=== PATIENT | female | born 1990 | race Caucasian/White ===

== ENCOUNTER → 2017-09-10 17:33 | Outpatient (REF) | payer BC, SELFPAY | LOC: LAB 17:33 | PROVIDERS: Visit Provider Nurse Practitioner Obstetrics & Gynecology | DX: Z34.90 Encounter for supervision of normal pregnancy, unspecified, unspecified trimester (principal) | CPT/HCPCS: 86403 ==

== ENCOUNTER 2017-09-26 22:50 | Inpatient (IN) ==
[2017-09-27 00:42] LABS: Microscopic, Urine URINE MICROSCOPIC (MICROSCOPIC)
[2017-09-27 00:59] LABS: Basophils # 0.1 K/mm3 (0-0.2); Basophils % 0.3 % (0.1-2.0); Eosinophils # 0.2 K/mm3 (0.0-0.4); Hematocrit 36.1 % (37.0-47.0); Hemoglobin 12.4 g/dL (12.2-16.2); Lymphocytes # 3.6 K/mm3 (0.7-4.5); Lymphocytes % 16.4 K/mm3 (10-50); Mean Corpuscular HGB Conc 34.3 g/dL (31.8-35.4); Mean Corpuscular Hemoglobin 30.5 pg (27.0-31.2); Mean Corpuscular Volume 88.9 fl (81-99); Mean Platelet Volume 8.5 fl (7.4-10.4); Monocytes # 1.3 K/mm3 (0.1-1.0); Monocytes % 5.7 % (1.7-9.3); Neutrophils # 17.1 K/mm3 (1.8-7.8); Neutrophils % 76.7 % (37.0-80.0); Platelet Count 316 K/mm3 (142-424); Red Blood Count 4.06 M/mm3 (4.20-5.40); Red Cell Distribution Width 12.6 % (11.5-17.5); White Blood Count 22.3 K/mm3 (4.8-10.8)
[2017-09-27 01:01] LABS: Appearance,Urine CLEAR (Clear); Bilirubin,Urine Negative (Negative); Blood, Urine Negative (Negative); Color,Urine YELLOW (Yellow); Glucose,Urine (UA) Negative (Negative); Ketones,Urine Negative (Negative); Leukocyte Esterase,Urine Negative (Negative); Protein,Urine Negative (Negative); Specific Gravity, Urine <= 1.005 (1.005-1.030); Urobilinogen,Urine 0.2 EU/dl (0.2)
[2017-09-27 01:25] LABS: Bacteria,Urine Trace /lpf
[2017-09-27 01:28] LABS: Amphetamine/Metha Screen,Urine Negative ng/mL (<1000); Barbiturates Screen,Urine Negative ng/mL (<200); Benzodiazepines Screen,Urine Negative ng/mL (200); Cannabinoid Screen,Urine Positive ng/mL (<50); Cocaine Screen,Urine Negative ng/g (<300); Methadone Screen,Urine Negative ng/mL (<300); Opiate Screen,Urine Negative ng/mL (<300); Phencyclidine Screen,Urine Negative ng/mL (<25)
--- NOTE | 2017-09-27 04:27 | Progress Note ---
[facility] Anesthesia Checklist - Structural Data Admitted From: Home Planned Operative Procedure/s: labor epid Consent for Planned Operative Procedure(s) Verified: Yes - Airway Assessment C-Spine Mobility Assessed: Yes TMJ Mobility Assessed: Yes Dentition: Good Dentition - Neurological Assessment Level of Consciousness: Awake, Alert, Appropriate - Anesthesia Plan Anesthesia Risk discussed: Yes Anesthesia Plan: Verified ASA Class: II Anesthesia Type: Epidural [facility] Anesthesia HX I have reviewed the patient's past medical history: Yes Medical History: Reports:: Anxiety, Asthma Denies:: Depression, Migraine, Seizures Laterality Cases: Bilateral: Tonsillectomy Other Surgeries: Yes: No Previous Surgery, Sinus Surgery. No: Amputation: No Fractures: No *Family Hx:: No significant family history
[2017-09-27 04:59] LABS: Anisocytosis 1+; Eosinophils % 1 % (0-3); Lymphocytes % 15 % (10-50); Monocytes % 2 % (2-9); Neutrophils % 82 % (42-76); Total Cells Counted 100
--- NOTE | 2017-09-27 08:48 | Progress Note ---
Labor Note - Subjective: Date: 09/27/17 Time: 08:47 irregular contractions - Objective: NST:: Reactive Contractions:: every 4-5 minutes Cervical Dilation:: 6 Effacement:: 100% Station: 0 Membranes: articially ruptured - Fetus: Monitoring?: Yes monitoring type:: Internal and External Comment:: I inserted and IUPC. - Assessment: Labor progressing?: Yes Cephalopelvic disproportion?: No Patient Problems: All Active Problems (Acute) - Plan: Anesthesia for epidural?: Yes Continue to labor down?: Yes Plan for ?: No Continue to monitor?: Yes Start pushing?: No
--- NOTE | 2017-09-27 08:50 | History & Physical Report ---
OB - H&P: HPI Antepartum - History of Present Illness Chief complaint: Contractions - History of Present Criteria for establishing EDC:: LMP confirmed by 1st trimester US care: good care Ultrasounds: normal 1st trimester US, normal mid trimester US Obstetrical complications: none Medical complications: none Planning to breastfeed?: No [facility] History I have reviewed the patient's past medical history: Yes Medical History: Reports:: Anxiety, Asthma Denies:: Depression, Migraine Laterality Cases: Bilateral: Tonsillectomy Other Surgeries: Yes: No Previous Surgery, Sinus Surgery. 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 Meds Home Medications Medication Instructions Recorded Confirmed Type ferrous sulfate 325 mg (65 mg 325 mg PO DAILY tab 06/07/17 09/27/17 History iron) tablet,delayed release 1 tab PO DAILY 06/07/17 09/27/17 History vitamin,calcium,hjkleecw-aixa-ngxfn acid tablet Allergies Allergy/AdvReac Type Severity Reaction Status Date / Time Sulfa (Sulfonamide Allergy Mild I-HIVES Verified 09/26/17 08:40 Antibiotics) [SULFA (SULFONAMIDE ANTIBIOTICS)] OB - H&P: Exam - Physical Exam Vital signs: Temp Pulse Resp BP Pulse Ox 98.1 F 122 H 17 134/79 98 09/26/17 23:25 09/26/17 23:25 09/26/17 23:25 09/26/17 23:25 09/26/17 23:25 - Constitutional no acute distress OB - Results - Labs Labs: Short CBC 09/27/17 Range/Units 00:15 WBC 22.3 H* (4.8-10.8) K/mm3 Hgb 12.4 (12.2-16.2) g/dL Hct 36.1 L (37.0-47.0) % Plt Count 316 (142-424) K/mm3 Urine 09/26/17 Range/Units 23:50 Urine Color Yellow (Yellow) Urine Appearance Clear (Clear) Urine pH 6.0 (5.0-8.5) Ur Specific [place] <= 1.005 (1.005-1.030) Urine Protein Negative (Negative) Urine Glucose (UA) Negative (Negative) OB - A/P Antepartum (1) Normal delivery Current visit: Yes Status: Acute - Additional Plan Plan: expectant management (I ruptured her membranes and inserted and IUPC. Will start oxytocin.)
--- NOTE | 2017-09-27 10:55 | Progress Note ---
Labor Note - Subjective: Date: 09/27/17 Time: 10:54 regular contraction - Objective: NST:: Reactive Contractions:: every 2-3 minutes Cervical Dilation:: 9-10 Effacement:: 100% Station: +3 Membranes: articially ruptured - Fetus: Monitoring?: Yes monitoring type:: Internal and External - Assessment: Labor progressing?: Yes Cephalopelvic disproportion?: No Patient Problems: All Active Problems Normal delivery (Acute) (Acute) - Plan: Anesthesia for epidural?: Yes Continue to labor down?: Yes Plan for ?: No Continue to monitor?: Yes Start pushing?: Yes Continue pushing?: Yes
--- NOTE | 2017-09-27 12:04 | Procedure Note ---
- Delivery Note Delivery Date:: 09/27/17 Delivery Time:: 11:44 Anesthesia Type: Epidural Was labor medically induced?: No Induction method: none delivered prior to 39 weeks?: No Justification for early elective delivery:: Active Labor Gender: Male at 1 minute: 8 at 5 minutes: 9 AF:: Clear fluid LAC or MLE?: LAC Delivery Procedure:: She is a 27-year-old 1 para 0 who was benign and 6 weeks gestational age. She came in in active labor and was found to be 4 cm dilated. She was observed overnight and progressed to 6 cm. She had her membranes ruptured and under labor epidural progressed to full dilation. She began pushing was having some prolonged decelerations and as result of that I elected to place a vacuum in the direct OA position at station +4 with an empty bladder. I applied a vacuum in the normal vacuum range and had her push twice the vacuum did not help much with her dissent so I elected to Place Hackett forceps. The forceps were placed in the direct OA position with an empty bladder. The baby was station +4. The Hackett forceps were also padded. Using one long gentle pull I was able to easily deliver the head. This is followed by the anterior shoulder and the rest of the 's body atraumatically. The nasopharynx and oropharynx were bulb suctioned. The baby cried spontaneously. He was quite vigorous. We allowed the cord to continue to pulsate for 1 minute and then doubly clamped and cut the cord. The baby was then handed off to nurses who assigned Apgars of 8 at 1 minute and 9 at 5 minutes. We then obtained cord blood as well as cord pH. The pH was 7.25. Using gentle traction on the cord and countertraction on the fundus I was able to easily deliver the placenta intact. He had a normal three-vessel cord. She had a small right labial tear as well as a second-degree perineal laceration. Labial tear was repaired with a single interrupted 3-0 Vicryl Rapide suture. The perineal tear was closed first with 3-0 Vicryl suture in a running locked fashion along the vaginal mucosa and then the deep tissues of the perineum were closed with 2-0 Vicryl suture. The skin was closed with subcuticular 2-0 Vicryl suture. She has a positive blood, she is rubella immune and was group B Streptococcus negative. She plans to bottle feed. 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 Estimated blood loss was approximately 400 cc. Laceration:: vaginal (Second-degree perineal tear) Placental Delivery Description: Spontaneous
[2017-09-27 15:27] LABS: Hematocrit 33.5 % (37.0-47.0); Hemoglobin 11.2 g/dL (12.2-16.2)
[2017-09-28 06:54] LABS: Hematocrit 28.9 % (37.0-47.0)
[2017-09-28 07:24] LABS: Hemoglobin 9.8 g/dL (12.2-16.2)
--- NOTE | 2017-09-28 07:34 | Progress Note ---
Internal Medicine - PN: Subj *Date: 09/28/17 *Time: 07:34 Interval history: She continues to do very well this morning. She is eating and drinking and ambulating. She is bottlefeeding. Her lochia is normal. Exam Vital signs and Labs for Last 24 Hours: Temp Pulse Resp BP Pulse Ox 98.1 F 122 H 17 134/79 98 09/26/17 23:25 09/26/17 23:25 09/26/17 23:25 09/26/17 23:25 09/26/17 23:25 Laboratory Results - last 24 hr 09/27/17 11:50: Cord ABG pH 7.25 L 09/27/17 15:19: Hgb 11.2 L, Hct 33.5 L 09/28/17 06:44: Hgb 9.8 L D, Hct 28.9 L I & O for Last 24 hours: Intake & Output 09/25/17 09/26/17 09/27/17 09/28/17 11:59 11:59 11:59 11:59 Weight 155 lb 4 oz - Constitutional no acute distress Assessment and Plan (1) Normal delivery Current visit: Yes Status: Acute Category: Medical Code(s): O80 - Encounter for full-term uncomplicated delivery; Z37.9 - Outcome of delivery, unspecified - Assessment and plan all Dx Assessment and Plan for all problems:: She continues to do very well. We will plan to send her home tomorrow.
--- NOTE | 2017-09-29 08:44 | Discharge Summary ---
General - General Admission date: 09/27/17 Discharge date: 09/29/17 HPI HPI: She is a 27-year-old 1 now para 1 who is 39 and 6 weeks gestational age. She came in in active labor. Hospital Course Hospital Course: She was found to be in active labor and progressed from 4-6 cm overnight. She had her membranes ruptured and under labor epidural progressed to full dilation. She delivered with the assistance of forceps a liveborn male child at 11:44 AM on the morning of September 27, 2017. The baby weighed 7 lbs. 2 oz. and had Apgars of 8 at 1 minute and 9 at 5 minutes. She has done well and has remained afebrile throughout her hospitalization. She is eating and drinking and ablating. She is bottlefeeding. She has a positive blood, she is rubella immune and was group B Streptococcus negative. She is discharged home to follow-up with me in approximately 2 weeks time. Objective Vital signs: Temp Pulse Resp BP Pulse Ox 98.0 F 88 18 123/56 98 09/28/17 19:50 09/28/17 19:50 09/28/17 19:50 09/28/17 19:50 09/28/17 19:50 no acute distress DS: Diagnosis - Discharge Diagnosis (1) Normal delivery Status: Acute Discharge Plan - Patient Discharge Instructions ACTIVITY: No heavy lifting DIET: continue same diet - Follow up Plan Disposition: Home, Self-Group Home Medications: Home Medications Medication Instructions Recorded Confirmed Type ferrous sulfate 325 mg (65 mg 325 mg PO DAILY tab 06/07/17 09/27/17 History iron) tablet,delayed release 1 tab PO DAILY 06/07/17 09/27/17 History vitamin,calcium,ggaiesid-izaf-dmvlh acid tablet Prescriptions/Medication Reconciliation: Continue vitamin,calcium,yoojhztz-xvul-brqus acid tablet 1 tab PO DAILY No Action ferrous sulfate 325 mg (65 mg iron) tablet,delayed release 325 mg PO DAILY tab
[2017-09-29 08:54] VITALS: BP 115/59
== END 2017-09-29 10:50 | disposition home or self-care (01) ==
LOC: OBOUT 22:50 → OB 22:54
PROVIDERS: ADMIT Obstetrics & Gynecology; ATTEND Nurse Practitioner Obstetrics & Gynecology